=== PATIENT | female | born 1955 | race Caucasian/White ===

== ENCOUNTER 2016-10-23 20:38 | Emergency (ER) | payer OTHER ==
[2016-10-23 20:45] VITALS: BP 128/84
[2016-10-23] MEDS ORDERED: DOXYcycline CAP(*) 100 MG PO ONE (20:59)
--- NOTE | 2016-10-23 21:05 | UC ---
Skin Complaint HPI - HPI Summary HPI Summary: 61 y/o female presents to the urgent care c/o of a tick bite on her back a couple hours ago. She denies fever, SOB, N/V/D. - History of Current Complaint Chief Complaint: UCBiteInjury Time Seen by Provider: 10/23/16 20:47 Stated Complaint: TICK Hx Obtained From: Patient, Family/Monument Setter - ?: No Onset/Duration: Sudden Onset, Lasting Hours, Still Present Skin Exposure Onset/Duration: Hours Ago Timing: Constant Onset Severity: Mild Current Severity: Mild Pain Intensity: 0 Pain Scale Used: 0-10 Numeric Location: Diffuse Character: Redness - around tick bite Aggravating: Nothing Alleviating: Nothing Associated Signs & Symptoms: Positive: Negative - Allergy/Home Medications Allergies/Adverse Reactions: Allergies Allergy/AdvReac Type Severity Reaction Status Date / Time No Known Allergies Allergy Verified 10/23/16 20:45 Home Medications: Home Medications NK [No Home Medications Reported] 10/23/16 [History Confirmed 10/23/16] Review of Systems Constitutional: Negative Skin: Other - tick bite on mid lateral side of back Eyes: Negative ENT: Negative Respiratory: Negative Cardiovascular: Negative Gastrointestinal: Negative Genitourinary: Negative Motor: Negative Neurovascular: Negative Musculoskeletal: Negative Neurological: Negative Psychological: Negative All Other Systems Reviewed And Are Negative: Yes PMH/Surg Hx/FS Hx/Imm Hx Previously Healthy: Yes - Surgical History Surgical History: Yes [facility] benign masses removed from thyroid [facility] and left breast. RIGHT FOOT SURGERY MAR 02 2014 - Family History Known Family History: Positive: None - Social History Lives: With Family Alcohol Use: None Substance Use Type: None Smoking Status (MU): Heavy Every Day Tobacco Smoker Type: Cigarettes Amount Used/How Often: 1 PACK Q3DAYS Length of Time of Smoking/Using Tobacco: 20 YEARS OFF AND ON When Did the Patient Quit Smoking/Using Tobacco: 01/22/2014 - Immunization History Most Recent Influenza Vaccination: MAR 2014 Physical Exam Triage Information Reviewed: Yes Appearance: Well-Appearing, No Pain Distress, Well-Nourished, Obese Vital Signs: Initial Vital Signs Temp 98.8 F 10/23/16 20:40 Pulse 78 10/23/16 20:40 Resp 16 10/23/16 20:40 BP 128/84 10/23/16 20:40 Pulse Ox 98 10/23/16 20:40 Vital Signs Reviewed: Yes Eye Exam: Normal Eyes: Positive: Conjunctiva Clear ENT Exam: Normal ENT: Positive: Normal ENT inspection, Hearing grossly normal, Pharynx normal, TMs normal Neck exam: Normal Respiratory Exam: Normal Respiratory: Positive: Chest non-tender, Lungs clear, Normal breath sounds Cardiovascular Exam: Normal Cardiovascular: Positive: RRR, No Murmur, Pulses Normal Abdominal Exam: Normal Abdomen Description: Positive: Nontender, No Organomegaly, Soft Bowel Sounds: Positive: Present Musculoskeletal Exam: Normal Neurological Exam: Normal Psychological Exam: Normal Skin: Positive: Other - tick bite the left lateral side of mid back, with mild erythema around. Tick still alive. no tenderness. Course/Dx - Course Course Of Treatment: Tick bite: on the left side of the mid back. Tick was removed from site using tick twister-technique. After tick removal and the skin cleansing. PT advised to observe the area for the development or Erythema Migrans for upto 30 days following exposure. Components of the tick saliva can cause transient erythema that should no be confused with Erythema Migrans. Antibiotic prophylaxis with Doxycycline given to the patient to prevent lyme Disease.. Pt tolerated well medication and left clinic ambulating. - Differential Diagnoses - Skin Complaint Differential Diagnoses: Cellulitis, Contact Dermatitis, Tick Born Illness, Urticaria - Diagnoses Provider Diagnoses: tick bite Discharge - Discharge Plan Condition: Stable Disposition: HOME Patient Education Materials: Tick Bite (ED) Referrals: Kaia Jo MD [Primary Care Provider] - Additional Instructions: Please observe the area for the development or Erythema Migrans for upto 30 days following exposure. Components of the tick saliva can cause transient erythema that should no be confused with Erythema Migrans. Antibiotic prophylaxis with Doxycycline given today to prevent lyme Disease.
== END 2016-10-23 21:10 | disposition home or self-care (01) ==
LOC: UCCORT 20:38
DX: S20.462A Insect bite (nonvenomous) of left back wall of thorax, initial encounter (principal); W57.XXXA Bitten or stung by nonvenomous insect and other nonvenomous arthropods, initial encounter; Y93.9 Activity, unspecified; Y92.9 Unspecified place or not applicable; E66.9 Obesity, unspecified; Z87.891 Personal history of nicotine dependence
CPT/HCPCS: 99212; A9270-GY; G0463

== ENCOUNTER 2023-06-09 16:56 | Observation (INO) ==
[2023-06-09 17:34] LABS: ABS Eosinophils 0.1 10^3/uL (0.0-0.5); ABS Lymphocytes 2.4 10^3/uL (1.0-4.8); ABS Monocytes 0.5 10^3/uL (0.0-0.9); ABS Neutrophils 4.1 10^3/uL (1.5-7.6); Eosinophil % 1.6 %; Hematocrit 40.6 % (35-45); Hemoglobin 13.8 g/dL (11.5-14.3); Lymphocyte % 33.5 %; Mean Corpuscular Hemoglobin 31.3 pg (27-33); Mean Platelet Volume 8.1 fL (7.5-11.2); Platelet Count 266 10^3/uL (150-450); Red Blood Count 4.41 10^6/uL (3.63-4.92); Red Cell Distribution Width 13.4 % (12-17); White Blood Count 7.1 10^3/uL (3.8-11.8)
[2023-06-09 17:43] LABS: INR 1.05 (0.83-1.13)
[2023-06-09 17:53] LABS: Albumin 4.5 g/dL (3.2-5.2); Albumin/Globulin Ratio 1.7 (1-3); Calcium 9.5 mg/dL (8.6-10.3); Creatinine, Serum 0.85 mg/dL (0.51-0.95); Globulin 2.7 g/dL (2-4); Potassium 4.1 mmol/L (3.5-5.0); Total Bilirubin 0.4 mg/dL (0.2-1.0); Total Protein 7.2 g/dL (6.4-8.9); eGFR CKD-EPI 74.6 (>60)
[2023-06-09 19:01] LABS: Rapid COVID-19 Molecular Undetected (Undetected)
[2023-06-09 19:18] LABS: High Sensitivity Troponin 1 Hr 5 pg/mL (<15)
[2023-06-10 06:58] LABS: ABS Eosinophils 0.2 10^3/uL (0.0-0.5); ABS Lymphocytes 2.3 10^3/uL (1.0-4.8); ABS Monocytes 0.5 10^3/uL (0.0-0.9); ABS Neutrophils 3.6 10^3/uL (1.5-7.6); Eosinophil % 3.3 %; Lymphocyte % 35.1 %; Mean Corpuscular Hemoglobin 31.5 pg (27-33); Mean Corpuscular Hgb Conc 33.3 g/dL (31-36); Mean Corpuscular Volume 94.7 fL (80-97); Mean Platelet Volume 7.8 fL (7.5-11.2); Nucleated Red Blood Cells % 0.1 %/100WBC (0.0-0.8); Platelet Count 224 10^3/uL (150-450); Red Blood Count 4.11 10^6/uL (3.63-4.92); Red Cell Distribution Width 13.8 % (12-17); White Blood Count 6.7 10^3/uL (3.8-11.8)
[2023-06-10 07:21] LABS: Calcium 8.8 mg/dL (8.6-10.3); Creatinine, Serum 0.79 mg/dL (0.51-0.95); Potassium 4.3 mmol/L (3.5-5.0); eGFR CKD-EPI 81.4 (>60)
[2023-06-11] MEDS ORDERED: NS 0.9% 1000 ml BAG 1,000 ML IV SCH (06:00)
[2023-06-11] MEDS ORDERED: Midazolam 5 mg/5 ml VIAL 1 mg/ml 5 ml VIAL (5 mg) ONE (12:26)
[2023-06-11] MEDS ORDERED: fentaNYL 100 mcg/2 ml 50 MCG/ML VIAL ONE (12:26)
[2023-06-11] MEDS ORDERED: Heparin 1,000 UNIT/ML 10 ml (10,000 UNITS) CATHLAB/DIALYSIS ONE (12:27)
[2023-06-11] MEDS ORDERED: Heparin 2 UNITS/ML 1000 mls 2,000 ML IV ONE (12:27)
[2023-06-11] MEDS ORDERED: nitroGLYCERIN DRIP 25,000 MCG/250 ML BTL ONE (12:27)
[2023-06-11] MEDS ORDERED: Iohexol 350 (CONTRAST) 200 ML MDV IV ONE (12:28)
[2023-06-11] MEDS ORDERED: niCARdipine 0.1MG/ML IVPREMIX 20 MG/200 ML BAG IV ONE (12:29)
[2023-06-11] MEDS ORDERED: Lidocaine 1% MPF 5 ML VIAL ONE (12:29)
[2023-06-11] MEDS ORDERED: Heparin 2 UNITS/ML 1000 mls 1,000 ML IV ONE (12:30)
[2023-06-11] MEDS ORDERED: Naloxone 0.4 mg VIAL 0.4 mg/ml 1 ml VIAL IV PUSH PRN (12:39)
[2023-06-11] MEDS ORDERED: Flumazenil 0.5 mg/5 ml 0.1 MG/ML 5 ml VIAL IV PRN (12:39)
[2023-06-11] MEDS ORDERED: Midazolam 10 mg/10 ml VIAL 1 mg/ml 10 ml VIAL (10 mg) IV SLOW PU ONE (12:39)
[2023-06-11] MEDS ORDERED: fentaNYL 100 mcg/2 ml 50 MCG/ML VIAL IV SLOW PU ONE (12:39)
[2023-06-11 17:38] VITALS: BP 103/80
== END 2023-06-11 17:58 | disposition home or self-care (01) ==
LOC: ED 16:56 → EDHOLD 16:56 → SUATTDRO 18:41 → MEDTELE 06-10 10:21
PROVIDERS: ADMIT Hospitalist; ATTEND Student in an Organized Health Care Education/Training Program